=== PATIENT | female | born 1955 | race African-American/Black ===

== ENCOUNTER 2016-12-07 05:34 | Emergency (ER) | payer OTHER ==
[2016-12-07] MEDS ORDERED: IBUPROFEN 600 MG TABLET (FP) PO STA (05:56)
--- NOTE | 2016-12-07 05:56 | PDOC ---
History of Present Illness - General History Source: Patient Exam Limitations: No Limitations - History of Present Illness Initial Comments: 12/07/16 06:15 The patient is a 61 year old female, with a significant past medical history of hypertension and GERD, who presents to the emergency department complaining of non-radiating left ankle pain for 2 days. The patient reports the front of her left ankle is swollen and nonerythematous. The patient reports she has no recollection of injury to her ankle in the past couple of days. She reports the pain is exacerbated when walking, but denies any alleviating factors. She denies any associated paresthesias or numbness. The patient denies taking tylenol or advil. The patient denies fever, chills, cough, headache, dizziness, or back pain. The patient denies chest pain, diaphoresis, palpitations, or shortness of breath. The patient denies nausea, vomiting, diarrhea, constipation , or changes in urination patterns. Allergies: NKDA. Tomatoes Past Surgical History: None reported Social History: Non-smoker. Denies alcohol or drug use. PCP: Dr. Tiesha Mahajan <Cee Sheldon - Last Filed: 12/07/16 06:58> - General History Source: Patient <JacobFuentes bui - Last Filed: 12/07/16 07:03> - General Stated Complaint: PAIN/SWELLING LT FOOT Time Seen by Provider: 12/07/16 05:51 Past History <Cee Sheldon - Last Filed: 12/07/16 06:58> - Past Medical History GI Disorders: Yes (gerd) HTN: Yes Hypercholesterolemia: Yes - Surgical History Appendectomy: Yes - Psycho/Social/Smoking Cessation Hx Anxiety: No Suicidal Ideation: No Smoking History: Never smoked Hx Alcohol Use: No Substance Use Type: None <Fuentes Pennington - Last Filed: 12/07/16 07:03> - Past Medical History Allergies/Adverse Reactions: Allergies Allergy/AdvReac Type Severity Reaction Status Date / Time No Known Drug Allergies Allergy Verified 12/07/16 06:15 tomato Allergy Verified 12/07/16 06:15 Home Medications: Ambulatory Orders Omeprazole [Prilosec (RX)] 40 mg PO BID 05/07/15 Aspirin [ASA -] 81 mg PO DAILY 10/29/16 Atorvastatin Ca [Lipitor] 20 mg PO HS 10/29/16 Baclofen 10 mg PO BID 10/29/16 Lisinopril/Hydrochlorothiazide [Lisinopril-Hctz 20-25 mg Tab] 1 each PO DAILY [place]-3 Fatty Acids/Fish Oil [Fish Oil 1,000 mg Softgel] 1 each PO DAILY Cholecalciferol (Vitamin D3) [D-2000] 1,000 unit PO DAILY 12/07/16 Ibuprofen 800 mg PO TID #30 tablet 12/07/16 Magnesium Oxide [Magnesium] 250 mg PO DAILY 12/07/16 Oxycodone HCl/Acetaminophen [Percocet 5-325 mg Tablet] 1 - 2 tab PO Q6H #20 tablet MDD 4 12/07/16 Review of Systems - Review of Systems Able to Perform ROS?: Yes Comments:: 12/07/16 06:15 CONSTITUTIONAL: Absent: fever, no chills, no fatigue EYES: Absent: visual changes ENT: Absent: ear pain, no sore throat CARDIOVASCULAR: Absent: chest pain, no palpitations RESPIRATORY: Absent: cough, no SOB GI: Absent: abdominal pain, no nausea, no vomiting, no constipation, no diarrhea GENITOURINARY: Absent: dysuria, no frequency, no hematuria MUSKULOSKELETAL: Present: +left ankle pain, +left ankle swelling Absent: back pain, no arthralgia, no myalgia SKIN: Absent: rash NEURO: Absent: headache <Sheldon,Giomilsy - Last Filed: 12/07/16 06:58> *Physical Exam - Physical Exam Comments: 12/07/16 06:16 GENERAL: Well-appearing, well-nourished. No apparent distress. HEENT: Normocephalic, atraumatic. PERRL, EOM intact. CARDIOVASCULAR: Normal S1, S2. Regular rate and rhythm. PULMONARY: Clear to auscultation bilaterally. ABDOMEN: Soft, non-distended, non-tender. EXTREMITIES: Normal range of motion at all joints. No bony deformities or tenderness. No CVA tenderness. Left anterior ankle swelling, non-erythematous and non-ecchymotic. SKIN: Warm, dry. No rash. No skin lesions noted. NEUROLOGICAL: Alert, awake, appropriate. Cranial nerves 2-12 intact. No deficits to light touch and temperature in face, upper extremities and lower extremities. No motor deficits in the in face, upper extremities and lower extremities. Normoreflexic in the upper and lower extremities. Normal speech. Toes are down- going bilaterally. Gait is normal without ataxia. <Cee Sheldon - Last Filed: 12/07/16 06:58> ED Treatment Course - RADIOLOGY Radiograph Interpretation: 12/07/16 06:55 EXAM: Left foot/ankle X-RAY INTERPRETED BY: Dr. Tolentino REVIEWED BY: Dr. Pennington IMPRESSION: Degenerative changes. No acute findings. <Cee Sheldon - Last Filed: 12/07/16 06:58> Medical Decision Making - Medical Decision Making 12/07/16 07:03 Dr. Pennington: The scribe's documentation has been prepared under my direction and personally reviewed by me in its entirery. I confirm that the note above accurately reflects all work, treatment, procedures, and medical decision making performed by me. <Fuentes Pennington - Last Filed: 12/07/16 07:03> *DC/Admit/Observation/Transfer - Attestations Scribe Attestion: 12/07/16 06:16 Documentation prepared by Cee Sheldon, acting as medical insurance claims specialist for Fuentes Pennington DO. <Cee Sheldon - Last Filed: 12/07/16 06:58> - Discharge Dispostion Admit: No <Fuentes Pennington - Last Filed: 12/07/16 07:03> Diagnosis at time of Disposition: Left ankle sprain Qualifiers: Encounter type: initial encounter Involved ligament of ankle: unspecified ligament Qualified Code(s): S93.402A - Sprain of unspecified ligament of left ankle, initial encounter - Prescriptions Prescriptions: Ibuprofen 800 mg PO TID #30 tablet Oxycodone HCl/Acetaminophen [Percocet 5-325 mg Tablet] 1 - 2 tab PO Q6H #20 tablet MDD 4 - Referrals Referrals: Tiesha Mahajan MD [Primary Care Provider] - - Patient Instructions Printed Discharge Instructions: DI for Ankle Sprain
[2016-12-07 06:18] VITALS: TEMP 98.7; BMI 38.2
[2016-12-07] MEDS ORDERED: IBUPROFEN 400 MG TABLET (FP) PO ONE (06:21)
[2016-12-07] MEDS ORDERED: OXYCODONE/APAP 5/325MG COMBO TABLET PO ONE (07:02)
[2016-12-07 08:19] VITALS: BP 136/70; PULSE 80
== END 2016-12-07 08:36 | disposition home or self-care (01) ==
LOC: JER 05:34
DX: S93.402A Sprain of unspecified ligament of left ankle, initial encounter (principal); X58.XXXA Exposure to other specified factors, initial encounter; Y93.9 Activity, unspecified; Y92.9 Unspecified place or not applicable; I10 Essential (primary) hypertension; E78.00 Pure hypercholesterolemia, unspecified; K21.9 Gastro-esophageal reflux disease without esophagitis; Z79.82 Long term (current) use of aspirin
CPT/HCPCS: 73610-TC-LT; 73630-TC-LT; 99282-25

== ENCOUNTER 2016-12-16 12:21 | Emergency (ER) | payer OTHER ==
[2016-12-16 12:28] VITALS: BP 129/78; PULSE 95; TEMP 98; BMI 37.1
--- NOTE | 2016-12-16 13:56 | PDOC ---
History of Present Illness - General Chief Complaint: Pain Stated Complaint: ANKLE BRUISING Time Seen by Provider: 12/16/16 13:02 History Source: Patient Exam Limitations: No Limitations - History of Present Illness Initial Comments: 12/16/16 14:12 Patient came to ER for reevaluation of left ankle sprain. tripped over some cording 2 weeks ago, was seen and evaluated here and diagnosed with a left ankle sprain without fractures. Levon wrap was provided and crutches. Patient states was using ibuprofen with good resolved but states 2 days ago put on a pair of high-heeled boots and was standing for most of the day and re- exacerbated the pain to her left foot. Swollen and tender with inability to weight-bear Occurred: reports: last week Severity: reports: moderate Pain Location: reports: lower extremity Past History - Travel Traveled outside of the country in the last 30 days: No Close contact w/someone who was outside of country & ill: No - Past Medical History Allergies/Adverse Reactions: Allergies Allergy/AdvReac Type Severity Reaction Status Date / Time No Known Drug Allergies Allergy Verified 12/16/16 12:28 tomato Allergy Verified 12/16/16 12:28 Home Medications: Ambulatory Orders Omeprazole [Prilosec (RX)] 40 mg PO BID 05/07/15 Aspirin [ASA -] 81 mg PO DAILY 10/29/16 Atorvastatin Ca [Lipitor] 20 mg PO HS 10/29/16 Baclofen 10 mg PO BID 10/29/16 Lisinopril/Hydrochlorothiazide [Lisinopril-Hctz 20-25 mg Tab] 1 each PO DAILY [place]-3 Fatty Acids/Fish Oil [Fish Oil 1,000 mg Softgel] 1 each PO DAILY Cholecalciferol (Vitamin D3) [D-2000] 1,000 unit PO DAILY 12/07/16 Ibuprofen 800 mg PO TID #30 tablet 12/07/16 Magnesium Oxide [Magnesium] 250 mg PO DAILY 12/07/16 Oxycodone HCl/Acetaminophen [Percocet 5-325 mg Tablet] 1 - 2 tab PO Q6H #20 tablet MDD 4 12/07/16 GI Disorders: Yes (gerd) HTN: Yes Hypercholesterolemia: Yes - Surgical History Appendectomy: Yes - Immunization History Immunization Up to Date: Yes - Psycho/Social/Smoking Cessation Hx Anxiety: No Suicidal Ideation: No Smoking History: Never smoked Information on smoking cessation initiated: No Hx Alcohol Use: No Substance Use Type: None Trauma Specific PMHX - Complaint Specific PMHX Back Injury: No Neck Injury: No Review of Systems - Review of Systems Able to Perform ROS?: Yes Is the patient limited Bangladeshi proficient: Yes Constitutional: Yes: See HPI. No: Symptoms Reported HEENTM: No: Symptoms Reported Musculoskeletal: Yes: Symptoms Reported, See HPI, Joint Pain, Joint Swelling All Other Systems: Reviewed and Negative *Physical Exam - Vital Signs Last Vital Signs Temp Pulse Resp BP Pulse Ox 98 F 95 H 18 129/78 98 12/16/16 12:25 12/16/16 12:25 12/16/16 12:25 12/16/16 12:25 12/16/16 12:25 - Physical Exam General Appearance: Yes: Nourished, Appropriately Dressed, Apparent Distress, Mild Distress HEENT: positive: EDUARDO, Normal ENT Inspection Neck: negative: Tender Respiratory/Chest: positive: Lungs Clear Musculoskeletal: positive: Normal Inspection Extremity: positive: Normal Capillary Refill. negative: Normal Inspection ( swelling, tenderness, pain to lateral malleolus and extending into mid foot and ligamentous areas. Range of motion is intact although plantar flexion re- exacerbates pain. Has no fifth metatarsal or navicular tenderness, negative squeeze test. 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 Levon wrap and Aircast applied, readjusted crutches and patient encouraged to follow- up with orthopedist this week for further evaluation and testing as needed *DC/Admit/Observation/Transfer Diagnosis at time of Disposition: Ankle sprain Qualifiers: Encounter type: subsequent encounter Involved ligament of ankle: unspecified ligament Laterality: left Qualified Code(s): S93.402D - Sprain of unspecified ligament of left ankle, subsequent encounter - Discharge Dispostion Disposition: HOME Condition at time of disposition: Stable Admit: No - Referrals Referrals: Tiesha Mahajan MD [Primary Care Provider] - Frankie Anaya MD [Staff Physician] - - Patient Instructions Printed Discharge Instructions: DI for Ankle Sprain Additional Instructions: Rest, ice to area on and off for 15 minutes 4-6 times a day Avoid heavy lifting or exercise until pain and swelling is resolved or until further directed Keep area highly elevated to reduce swelling Use splints/Levon wrap as directed Followup with orthopedist in one to 2 days if not improving, if significantly improved may wait one week for followup with orthopedist May use ibuprofen 2-200 mg tablets every 6 hours as needed for pain
== END 2016-12-16 13:43 | disposition home or self-care (01) ==
LOC: JERFT 12:21
PROC: 2W3MX1Z Immobilization of Left Lower Extremity using Splint (ICD-10-PCS; principal; 2016-12-16)
DX: S93.402D Sprain of unspecified ligament of left ankle, subsequent encounter (principal); X50.1XXA Overexertion from prolonged static or awkward postures, initial encounter; X50.9XXA Other and unspecified overexertion or strenuous movements or postures, initial encounter; Y93.89 Activity, other specified; Y92.9 Unspecified place or not applicable; Y99.9 Unspecified external cause status
CPT/HCPCS: 29515; 99281-25

== ENCOUNTER 2017-06-29 13:07 | Emergency (ER) | payer OTHER ==
[2017-06-29 13:17] VITALS: BP 135/79; PULSE 98; TEMP 98; BMI 37.3
[2017-06-29] MEDS ORDERED: TRIAMCINOLONE ACET 40MG/1ML VIAL IM ONE (14:06)
--- NOTE | 2017-06-29 14:19 | PDOC ---
History of Present Illness - General Chief Complaint: Rash Stated Complaint: RASH Time Seen by Provider: 06/29/17 13:32 History Source: Patient Exam Limitations: No Limitations - History of Present Illness Initial Comments: 06/29/17 14:29 She came to emergency department for evaluation of worsening maculopapular rash which started on left arm and has spread extending through all of arm, bilateral thighs, and now to her upper back. Denies fever, recent URI, or other illness. Denies other family members with rash, denies any travel or exposure to any plants or poison percy type substance. Denies any changes in soaps creams or other environmental applications. No pets at home, and no known infestations. Uncertain as to cause. Denies swelling to lips tongue or breathing problems, no exposure to infectious disease, and no areas infected. Timing/Duration: reports: just prior to arrival, changing over time, getting worse Location: reports: extremities, torso Respiratory Risk Factors: reports: no cause identified Associated Symptoms: reports: denies symptoms Past History - Travel Traveled outside of the country in the last 30 days: No Close contact w/someone who was outside of country & ill: No - Past Medical History Allergies/Adverse Reactions: Allergies Allergy/AdvReac Type Severity Reaction Status Date / Time No Known Drug Allergies Allergy Verified 06/29/17 13:11 tomato Allergy Verified 06/29/17 13:11 Home Medications: Ambulatory Orders Omeprazole [Prilosec (RX)] 40 mg PO BID 05/07/15 Aspirin [ASA -] 81 mg PO DAILY 10/29/16 Atorvastatin Ca [Lipitor] 20 mg PO HS 10/29/16 Baclofen 10 mg PO BID 10/29/16 Lisinopril/Hydrochlorothiazide [Lisinopril-Hctz 20-25 mg Tab] 1 each PO DAILY [place]-3 Fatty Acids/Fish Oil [Fish Oil 1,000 mg Softgel] 1 each PO DAILY Cholecalciferol (Vitamin D3) [D-2000] 1,000 unit PO DAILY 12/07/16 Ibuprofen 800 mg PO TID #30 tablet 12/07/16 Magnesium Oxide [Magnesium] 250 mg PO DAILY 12/07/16 Cetirizine HCl [Zyrtec -] 10 mg PO DAILY #30 tablet 06/29/17 Diabetes: Yes GI Disorders: Yes (gerd) HTN: Yes Hypercholesterolemia: Yes Other medical history: GOUT - Surgical History Appendectomy: Yes - Immunization History Immunization Up to Date: Yes - Psycho/Social/Smoking Cessation Hx Anxiety: No Suicidal Ideation: No Smoking History: Never smoked Information on smoking cessation initiated: No Hx Alcohol Use: No Substance Use Type: None Review of Systems - Review of Systems Able to Perform ROS?: Yes Is the patient limited [place] proficient: Yes Constitutional: Yes: See HPI. No: Symptoms Reported, Fever, Malaise HEENTM: Yes: See HPI. No: Symptoms Reported, Nose Pain, Nose Congestion, Throat Pain, Throat Swelling, Mouth Swelling Respiratory: Yes: See HPI. No: Symptoms reported, Cough, Shortness of Breath, Wheezing Integumentary: Yes: Symptoms Reported, See HPI, Lesions, Pruritus, Rash Neurological: Yes: See HPI. No: Symptoms reported Hematologic/Lymphatic: No: Symptoms Reported All Other Systems: Reviewed and Negative *Physical Exam - Vital Signs Last Vital Signs Temp Pulse Resp BP Pulse Ox 98 F 98 H 18 135/79 99 06/29/17 13:08 06/29/17 13:08 06/29/17 13:08 06/29/17 13:08 06/29/17 13:08 - Physical Exam General Appearance: Yes: Nourished, Appropriately Dressed, Apparent Distress, Mild Distress HEENT: positive: EDUARDO, Normal ENT Inspection, TMs Normal, Pharynx Normal Neck: positive: Supple. negative: Tender, Lymphadenopathy (R), Lymphadenopathy (L) Respiratory/Chest: positive: Lungs Clear, Normal Breath Sounds Cardiovascular: positive: Regular Rate Extremity: positive: Normal Capillary Refill, Normal Inspection, Normal Range of Motion Integumentary: positive: Normal Color, Dry, Warm, Rash (she'll papular rash, discrete lesions covering left arm extending from wrist up to mid humerus circumferentially, not pointing, not umbilicated, no erythematous base or vesicular in nature. Has same type lesions noted on upper legs bilaterally, and some new cropping lesions on her mid back. 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 Evidence of anaphylaxis, infectious, or infected We 'll treat with 1 dose of Kenalog, and antihistamines. Encouraged follow-up with PMD or supervisor nurse if persistent *DC/Admit/Observation/Transfer Diagnosis at time of Disposition: Rash and nonspecific skin eruption - Discharge Dispostion Disposition: HOME Condition at time of disposition: Stable Admit: No - Patient Instructions Printed Discharge Instructions: DI for Rash Additional Instructions: Rest, keep cool and dry- avoid strenuous activity or hot /humid environments Less hot showers, no abrasive soaps May use heavy creams like Eucerin or Cetaphil to keep skin moist May apply Aveeno, calamine lotion, [id number] hydrocortisone creams as needed for symptoms May use Benadryl at night for antihistamine, Zyrtec/ Kaity or Claritin for daytime antihistamine use to help with itching Received one dose of Kenalog, a long-acting steroid for itching and inflammation May use lfgn-yjh-wryjzuk hydrocortisone cream on all areas except face Try to identify cause for rash and avoid exposures Followup with PMD in one week if no resolution Make appointment with supervisor nurse for evaluation when possible - Post Discharge Activity Work/School Note: Back to Work
[2017-06-29] MEDS ORDERED: TRIAMCINOLONE ACET 40MG/1ML VIAL ONE (14:21)
== END 2017-06-29 14:47 | disposition home or self-care (01) ==
LOC: JERFT 13:07
PROC: 3E0233Z Introduction of Anti-inflammatory into Muscle, Percutaneous Approach (ICD-10-PCS; principal; 2017-06-29)
DX: R21 Rash and other nonspecific skin eruption (principal); I10 Essential (primary) hypertension; E11.9 Type 2 diabetes mellitus without complications; M10.9 Gout, unspecified; E78.00 Pure hypercholesterolemia, unspecified; K21.9 Gastro-esophageal reflux disease without esophagitis
CPT/HCPCS: 96372; 99281-25

== ENCOUNTER 2017-08-08 12:23 | Emergency (ER) | payer OTHER ==
[2017-08-08 12:38] VITALS: BP 102/69; PULSE 75; TEMP 98.4; BMI 36.4
--- NOTE | 2017-08-08 14:58 | PDOC ---
History of Present Illness - General Chief Complaint: Pain Stated Complaint: LT KNEE PAIN Time Seen by Provider: 08/08/17 14:24 History Source: Patient Exam Limitations: No Limitations - History of Present Illness Initial Comments: 08/08/17 14:58 My chief complaint: Left Knee pain History of present illness: Patient is a 62-year-old female with history of hyperlipidemia, GERD, hypertension, gout, and cya-tvsptkk-rlqrsupoe diabetes here today complaining of left knee pain. Patient denies any injury to her knee. Patient denies that she is limping. Patient reports that she has been taking Aleve with some relief of pain. Patient denies any numbness of her left leg. Occurred: reports: other (for a few weeks) Severity: Yes: moderate Lower Extremity Pain Location: left: knee Method of Injury: Yes: unknown Modifying Factors: improves with: None Lower Ext. Injury Location - Specific Injury Location Knees: left pain Extremity Pain Location - Extremity Pain Location Extremity Pain Locations: left: knee Past History - Past Medical History Allergies/Adverse Reactions: Allergies Allergy/AdvReac Type Severity Reaction Status Date / Time No Known Drug Allergies Allergy Verified 08/08/17 12:35 tomato Allergy Verified 08/08/17 12:35 Home Medications: Ambulatory Orders Omeprazole [Prilosec (RX)] 40 mg PO BID 05/07/15 Aspirin [ASA -] 81 mg PO DAILY 10/29/16 Atorvastatin Ca [Lipitor] 20 mg PO HS 10/29/16 Baclofen 10 mg PO BID 10/29/16 Lisinopril/Hydrochlorothiazide [Lisinopril-Hctz 20-25 mg Tab] 1 each PO DAILY [place]-3 Fatty Acids/Fish Oil [Fish Oil 1,000 mg Softgel] 1 each PO DAILY Cholecalciferol (Vitamin D3) [D-2000] 1,000 unit PO DAILY 12/07/16 Ibuprofen 800 mg PO TID #30 tablet 12/07/16 Magnesium Oxide [Magnesium] 250 mg PO DAILY 12/07/16 Cetirizine HCl [Zyrtec -] 10 mg PO DAILY #30 tablet 06/29/17 Diabetes: Yes GI Disorders: Yes (gerd) HTN: Yes Hypercholesterolemia: Yes Other medical history: gout - Surgical History Appendectomy: Yes - Immunization History Immunization Up to Date: Yes - Suicide/Smoking/Psychosocial Hx Smoking History: Never smoked Hx Alcohol Use: No Drug/Substance Use Hx: No Substance Use Type: None Review of Systems - Review of Systems Able to Perform ROS?: Yes Constitutional: No: Symptoms Reported HEENTM: No: Symptoms Reported Respiratory: No: Symptoms reported Cardiac (ROS): No: Symptoms Reported ABD/GI: No: Symptoms Reported : No: Symptoms Reported Musculoskeletal: Yes: Joint Pain (left knee). No: Joint Swelling Integumentary: No: Symptoms Reported Neurological: No: Symptoms reported *Physical Exam - Vital Signs Last Vital Signs Temp Pulse Resp BP Pulse Ox 98.4 F 75 18 102/69 100 08/08/17 12:36 08/08/17 12:36 08/08/17 12:36 08/08/17 12:36 08/08/17 12:36 - Physical Exam General Appearance: Yes: Appropriately Dressed Vascular Pulses: Doralis-Pedis (L): 4+ Extremity: positive: Normal Capillary Refill, Normal Inspection, Normal Range of Motion, Tender. negative: Other (no crepitus, negative anterior/posterior drawer, negative Christian) Integumentary: positive: Normal Color Neurologic: positive: Alert, Normal Response, Responsive. negative: Respond to painful stimul ED Treatment Course - RADIOLOGY Radiology Studies Ordered: Category Date Time Status KNEE 3 POS-LEFT [RAD] Stat Radiology 08/08/17 14:52 Ordered Medical Decision Making - Medical Decision Making 08/08/17 15:01 Patient is a 62-year-old female with history of hyperlipidemia, GERD, hypertension, gout, and pgc-jtwpddw-seziwnpko diabetes here today complaining of left knee pain. Patient denies any injury to her knee. Patient denies that she is limping. Patient reports that she has been taking Aleve with some relief of pain. Patient denies any numbness of her left leg. Left knee pain Plan: X-ray left knee mild OA changes per Dr. Cancino Follow-up with orthopedist as soon as possible 08/08/17 16:27 *DC/Admit/Observation/Transfer Diagnosis at time of Disposition: Knee pain, left Qualifiers: Chronicity: acute Qualified Code(s): M25.562 - Pain in left knee Diagnosis at time of Disposition: (Ruled Out): Right knee pain - Discharge Dispostion Disposition: HOME Condition at time of disposition: Stable - Referrals Referrals: Tiesha Mahajan MD [Primary Care Provider] - Jeff Tony MD [Staff Physician] - - Patient Instructions Additional Instructions: Follow-up with orthopedist for further evaluation of your knee pain You may take Aleve as directed by applied psychology professor for pain Avoid any strenuous activities or exercise Patient voiced understanding of discharge instructions and all questions were answered
== END 2017-08-08 16:40 | disposition home or self-care (01) ==
LOC: JERFT 12:23
DX: M25.562 Pain in left knee (principal); K21.9 Gastro-esophageal reflux disease without esophagitis; I10 Essential (primary) hypertension; E11.9 Type 2 diabetes mellitus without complications; E78.5 Hyperlipidemia, unspecified
CPT/HCPCS: 73562-TC-LT; 99281-25

== ENCOUNTER 2018-07-11 09:09 | Day surgery (SDC) | payer OTHER ==
[2018-07-10 10:32] VITALS: BMI 36.6
--- NOTE | 2018-07-11 08:52 | HP ---
History & Physical Update - History History: No Change - Physical Physical: No Change - Assessment Assessment: No Change - Plan Plan: No Change (Exploration of sinus in left buttock, possible drainage / excision explained. Possibility of keeping the wound open discussed. MRI findings discusssed.)
[2018-07-11] MEDS ORDERED: MIDAZOLAM HCL 2 MG/2 ML SINGLE DOSE VIAL ONE (09:48)
[2018-07-11] MEDS ORDERED: LACTATED RINGERS SOLUTION 1,000 ML IV SCH (10:15)
[2018-07-11] MEDS ORDERED: PROPOFOL 20 ML ONE ×2 (10:17→10:45)
[2018-07-11] MEDS ORDERED: LIDOCAINE HCL 1% PRESERVATIVE FREE - 30ML VIAL IJ ONE (10:40)
[2018-07-11] MEDS ORDERED: DEXAMETHASONE SOD PHOSPHATE 4 MG/1 ML VIAL ONE (10:44)
[2018-07-11] MEDS ORDERED: SODIUM CHLORIDE 0.9% P/F 10 ML VIAL IJ ONE (10:44)
[2018-07-11] MEDS ORDERED: ceFAZolin SODIUM 1 GM VIAL ONE (10:44)
[2018-07-11] MEDS ORDERED: ONDANSETRON 4 MG/2 ML VIAL ONE (10:44)
[2018-07-11] MEDS ORDERED: LIDOCAINE HCL/PF 2% SDV 5ML VIAL ONE (10:44)
--- NOTE | 2018-07-11 11:04 | OP ---
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 Operation: Examination under anesthesia, anoscopy with dilation, anal fistulectomy, trnssphincteric, with placement of seton Findings: Anal fistula , entering the anal canal at 5 O'clock position, transsphincteric. Seton placed , no. 2 ethibond. Post-Operative Diagnosis: Other (Transsphincteric anal fistula.) Surgeon: Santiago Dutta Anesthesiologist/FOOD SERVICES DIRECTOR: Juan Simon Anesthesia: General Specimens Removed: Anal fistula. Estimated Blood Loss (mls): 25 Operative Report Dictated: Yes
[2018-07-11 12:46] VITALS: BP 104/64; PULSE 83; TEMP 97.6
--- NOTE | 2018-07-11 13:11 | OP ---
DATE OF OPERATION: 07/11/2018 PREOPERATIVE DIAGNOSIS: Chronically draining sinus in the left buttock. 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 OPERATION: Examination under anesthesia, anoscopy with dilation, anal fistulotomy/ fistulectomy transsphincteric with placement of seton. SURGEON: Lety Martinez M.D. ANESTHESIOLOGIST: Juan Moe M.D. OPERATIVE DESCRIPTION: This 63-year-old woman had a chronically draining sinus in the left gluteal region with local induration. Rectal examination is normal. Patient had MRI of the perineum which did not reveal any abscess or any fistula. Patient was brought in for examination under anesthesia and possible anal fistulotomy and anoscopy. Patient was made aware of this being possibly an anal fistula. Patient was given general anesthesia, placed in lithotomy. The perineum was painted and draped. An anal scope was introduced into the anal canal. There was no gross pathology in the anal canal. In the rectum, after dilating the anal canal, it was started as a small induration at about the 5 o'clock position at 4-5 cm to the anal verge. The probe was introduced to distract, and it opened in the 5 o'clock position in the anal canal and anorectal junction suggesting this to be a high anal fistula. The fistula was then excised with an incision around the opening and cutting this towards the anal canal. This appeared deep to go through the subcutaneous fat and then through the external sphincter. Dissection stopped at the level of the external sphincter wherein a number 2 Ethibond suture was passed through the internal opening and brought out externally through the sphincter. A fistula probe was utilized to facilitate passage of the seton. The seton was then tied around the external sphincter and left long for about 3 cm in length beyond the knot. Hemostasis was then achieved. The wound about 5 cm in length and 2 cm width was left open and packed with Iodoform gauze. Dressing was applied. Estimated blood loss was 15 to 20 mL. Sponge count and instrument count was correct. Patient tolerated the procedure well and was sent to the recovery room in satisfactory and stable condition. CLARI JONES M.D. [id number] MTDD
--- NOTE | 2018-07-16 12:10 | PATH ---
Surgical Pathology Report Patient Name: MIGUEL HAWKINS [facility]. Rec. #: [id number] /Age/Gender: 1955 (Age: 63) / F Account: [id number] Location: [facility] SURGICAL Taken: 07/11/2018 Received: 07/11/2018 Reported: 07/16/2018 Physicians: Korin Dutta M.D. Specimen(s) Received LEFT ANAL FISTULA Clinical History Chronic sinus left buttock Final Diagnosis GLUTEAL, LEFT, ANAL FISTULA, EXCISION: SQUAMOUS MUCOSA, UNDERLYING ADIPOSE TISSUE AND SKELETAL MUSCLE WITH MILD SUPERFICIAL DERMAL CHRONIC INFLAMMATORY INFILTRATE, FOCAL DERMAL FIBROSIS, AND FOCAL MUCOSAL EROSION. Comment: Deeper levels have been examined. Electronically Signed Kamila Ramirez M.D. Gross Description Received in formalin labeled "anal fistula left gluteal," is a 2.2 x 2.0 cm brown, ovoid portion of skin excised to a depth of 1.7 cm. Sectioning reveals fibroadipose tissue with a possible sinus tract. Optical Instrument Inspector sections are submitted in one cassette. The remainder of the specimen is entirely submitted in cassettes #2-3. DL/07/11/2018 saudi/07/11/2018
== END 2018-07-11 14:45 | disposition home or self-care (01) ==
LOC: JASU-SURG 09:09
PROVIDERS: ATTEND Specialist
PROC: 0D8R0ZZ Division of Anal Sphincter, Open Approach (ICD-10-PCS; principal; 2018-07-11 11:00)
DX: K60.3 Anal fistula (principal)
CPT/HCPCS: 88304-TC; 94760

== ENCOUNTER 2018-08-22 08:34 | Day surgery (SDC) | payer OTHER ==
[2018-08-21 09:34] VITALS: BMI 37.3
--- NOTE | 2018-08-22 09:16 | HP ---
History & Physical Update - History History: No Change - Physical Physical: No Change - Assessment Assessment: No Change - Plan Plan: No Change (Patient with intersphincteric anal fistula , s/p placement of seton, for examination under anesthesia, possible change of seton / fistulectomy.)
[2018-08-22] MEDS ORDERED: MIDAZOLAM HCL 2 MG/2 ML SINGLE DOSE VIAL ONE (09:42)
[2018-08-22] MEDS ORDERED: PROPOFOL 20 ML ONE (10:29)
[2018-08-22] MEDS ORDERED: ceFAZolin SODIUM 1 GM VIAL IVPB ONE (11:05)
--- NOTE | 2018-08-22 11:30 | OP ---
Operative Note - Note: Operative Date: 08/22/18 Pre-Operative Diagnosis: Transsphincteric anal fistula, s/p placement of seton. Operation: Second stage anal fistulotomy , examination under anesthesia, anoscopy, change of seton, cauterisation of fistulous tract. Findings: Transsphincteric anal fistula. The tract is still through the lower fibers of the external sphincter> Seton changed. No. 5 mercelene passed through the fistula and tied around the sphincter. The fistula tract was cauterised with electrocautery. Post-Operative Diagnosis: Same as Pre-op Surgeon: Santiago Dutta Anesthesiologist/FLAGMAN: Inna Celaya Anesthesia: General Specimens Removed: None. Estimated Blood Loss (mls): 5 Operative Report Dictated: Yes
[2018-08-22] MEDS ORDERED: oxyCODONE HCL 5 MG TABLET PO PRN (12:02)
[2018-08-22] MEDS ORDERED: LACTATED RINGERS SOLUTION 1,000 ML IV SCH (12:15)
[2018-08-22 12:17] VITALS: TEMP 97.6
[2018-08-22] MEDS ORDERED: ONDANSETRON 4 MG/2 ML VIAL ONE (13:46)
[2018-08-22 16:11] VITALS: BP 115/58; PULSE 77
--- NOTE | 2018-08-23 06:18 | OP ---
DATE OF OPERATION: 08/22/2018 PREOPERATIVE DIAGNOSIS: Transsphincteric anal fistula status post placement of seton and 1st stage fistulectomy. POSTOPERATIVE DIAGNOSIS: Transsphincteric anal fistula status post placement of seton and 1st stage fistulectomy. OPERATIVE PROCEDURE: Examination under anesthesia, anoscopy and change of seton , and cauterization of the fistulous tract. SURGEON: Korin Dutta MD ANESTHESIA: General anesthesia. OPERATIVE DESCRIPTION: This is a 63-year-old woman with history of transsphincteric anal fistula who underwent excision, of the distal portion of the tract, and seton was placed, about 6 weeks ago. Patient was brought in for examination under anesthesia, possible replacement of the seton or completion of the fistulectomy. Consent was obtained. Risks, benefits, and complications were discussed with the patient. Patient was given general anesthesia, placed in the lithotomy position. Antibiotics were given. Time-out was called. The perineum and anal canal were painted with Betadine and draped. The seton was identified and pulled back. It appeared to pass through the superficial fibers of the external sphincter. A probe was then placed through the fistulous tract, and a No. 5 Mersilene was brought out through the anal fistula. The previously placed seton was removed. The seton was then tied around the external sphincter circumferentially thus producing pressure, and hopefully , enough cicatrization for a completion, in the next procedure. The fistulous tract was then cauterized with electrocautery, as well as the granulation tissue of the external portion, that had been granulated. Hemostasis was satisfactory. Patient tolerated the procedure well and was sent to the recovery room in satisfactory and stable condition. Scott [id number] MTDD
== END 2018-08-22 15:00 | disposition home or self-care (01) ==
LOC: JASU-SURG 08:34
PROVIDERS: ATTEND Specialist
PROC: 0DQQ8ZZ Repair Anus, Via Natural or Artificial Opening Endoscopic (ICD-10-PCS; 2018-08-22)
PROC: 0DBQ4ZZ Excision of Anus, Percutaneous Endoscopic Approach (ICD-10-PCS; principal; 2018-08-22 10:00)
DX: K60.3 Anal fistula (principal)
CPT/HCPCS: 94760

== ENCOUNTER 2023-08-15 00:11 | Observation (INO) | payer OTHER ==
[2023-08-15] MEDS ORDERED: ACETAMINOPHEN 500 MG TABLET (FP) PO ONE (01:30)
[2023-08-15] MEDS ORDERED: LIDOCAINE 5% TOPICAL PATCH TP ONE (01:31)
[2023-08-15] MEDS ORDERED: METHOCARBAMOL 750 MG TABLET PO ONE (01:31)
[2023-08-15] MEDS ORDERED: ACETAMINOPHEN 1000 MG/100 ML BAG IVPB ONE (01:50)
[2023-08-15] MEDS ORDERED: ACETAMINOPHEN INJECTION 100 ML IVPB ONE (01:51)
[2023-08-15] MEDS ORDERED: LIDOCAINE 4% PATCH TP ONE (01:51)
[2023-08-15] MEDS ORDERED: METHOCARBAMOL 500 MG TABLET ONE (01:51)
[2023-08-15 02:34] LABS: BASO % 0.9 % (0-2.0); EOS % 4.1 % (0-4.5); HEMATOCRIT 35.6 % (32.4-45.2); LYMPH % 17.5 % (8-40); MCH 25.6 pg (25.7-33.7); MCHC 33.8 g/dl (32.0-36.0); MEAN CELL VOLUME 75.8 fl (80-96); MEAN PLT VOLUME 6.9 fl (7.5-11.1); MONO % 7.9 % (3.8-10.2); NEUT % 69.6 % (42.8-82.8); PLATELET COUNT 372 10^3/uL (134-434); RBC 4.69 M/mm3 (3.60-5.2); RDW 15.5 % (11.6-15.6); WHITE BLOOD COUNT 9.6 K/mm3 (4.0-10.0)
[2023-08-15 03:08] LABS: POTASSIUM 3.9 mmol/L (3.5-5.1)
[2023-08-15 03:09] LABS: CALCIUM 9.9 mg/dL (8.5-10.1)
[2023-08-15 03:10] LABS: ALBUMIN 4.2 g/dl (3.4-5.0); BLOOD UREA NITROGEN 36.4 mg/dL (7-18)
[2023-08-15 03:13] LABS: CREATININE 1.4 mg/dL (0.55-1.3)
[2023-08-15 03:15] LABS: BILIRUBIN,TOTAL 0.2 mg/dL (0.2-1); TOT PROT 7.6 g/dl (6.4-8.2)
[2023-08-15 03:25] LABS: EPI CELLS 5 /uL (0-25.1); HYALINE CASTS 0 /uL (0-3.1); PH,URINE 5.5 (5.0-8.0); URINE APPEARANCE CLEAR; URINE BACTERIA 21 /uL (0-1359); URINE BILIRUBIN NEGATIVE (NEGATIVE); URINE COLOR YELLOW; URINE GLUCOSE (UA) NEGATIVE (NEGATIVE); URINE KETONE NEGATIVE (NEGATIVE); URINE LEUK ESTERASE 1+ (NEGATIVE); URINE NITRITE NEGATIVE (NEGATIVE); URINE PROTEIN NEGATIVE (NEGATIVE); URINE RBC 10 /uL (0-23.9); URINE UROBILINOGEN 0.2 mg/dL (0.2-1.0); URINE WBC 8 /uL (0-25.8)
[2023-08-15] MEDS ORDERED: morphine CARPU-JECT 4 MG/1 ML DISP.SYRIN IVPUSH ONE (06:56)
[2023-08-15] MEDS ORDERED: morphine SULFATE 4 MG/ML VIAL ONE (07:26)
[2023-08-15] MEDS ORDERED: BACLOFEN 10 MG TABLET (FP) ONE (10:46)
[2023-08-15] MEDS ORDERED: HYDROCHLOROTHIAZIDE 25 MG TABLET (FP) ONE (10:46)
[2023-08-15] MEDS ORDERED: LISINOPRIL 20 MG TABLET ONE (10:46)
[2023-08-15] MEDS: HYDROCHLOROTHIAZIDE 25 MG TABLET (FP) PO SCH (10:54)
[2023-08-15] MEDS: BACLOFEN 10 MG TABLET (FP) PO SCH ×3 (10:54→21:36)
[2023-08-15] MEDS: LISINOPRIL 20 MG TABLET PO SCH (10:54)
[2023-08-15] MEDS ORDERED: LIDOCAINE PATCH REMOVAL MC ONE (14:00)
[2023-08-15] MEDS ORDERED: GABAPENTIN 100 MG CAPSULE ONE (14:25)
[2023-08-15] MEDS: GABAPENTIN 100 MG CAPSULE PO SCH ×2 (14:38→21:36)
[2023-08-15 16:59] VITALS: RESP 20; BMI 38.0
[2023-08-15] MEDS: ACETAMINOPHEN 1000 MG/100 ML BAG IVPB PRN (17:14)
[2023-08-15] MEDS ORDERED: ATORVASTATIN CA 20 MG TABLET (FP) PO SCH (22:00)
[2023-08-16] MEDS: ACETAMINOPHEN 1000 MG/100 ML BAG IVPB PRN (04:07)
[2023-08-16] MEDS: BACLOFEN 10 MG TABLET (FP) PO SCH ×2 (05:42→13:04)
[2023-08-16] MEDS: GABAPENTIN 100 MG CAPSULE PO SCH ×2 (05:42→13:04)
[2023-08-16] MEDS: HYDROCHLOROTHIAZIDE 25 MG TABLET (FP) PO SCH (09:29)
[2023-08-16] MEDS: LISINOPRIL 20 MG TABLET PO SCH (09:31)
[2023-08-16] MEDS ORDERED: ASPIRIN 81 MG CHEWABLE TABLETS PO SCH (10:00)
[2023-08-16] MEDS ORDERED: PATIENT'S OWN MEDICATION (NON-FORMULARY) (Lisinopril/Hydrochlorothiazide [Lisinopril-Hctz PO SCH (10:00)
[2023-08-16] MEDS ORDERED: HEPARIN NA (PORCINE) 5,000 UNITS/ML 1ML VIAL SQ SCH (12:30)
[2023-08-16 14:30] VITALS: BP 117/48; PULSE 68; TEMP 97.5
== END 2023-08-16 19:30 | disposition home or self-care (01) ==
LOC: JER 00:11 → JERBED 06:55 → J6S 15:59
PROVIDERS: ADMIT Internal Medicine; ATTEND Internal Medicine
PROC: 3E033NZ Introduction of Analgesics, Hypnotics, Sedatives into Peripheral Vein, Percutaneous Approach (ICD-10-PCS; principal; 2023-08-15)
PROC: 3E023GC Introduction of Other Therapeutic Substance into Muscle, Percutaneous Approach (ICD-10-PCS; 2023-08-15)
PROC: 3E033NZ Introduction of Analgesics, Hypnotics, Sedatives into Peripheral Vein, Percutaneous Approach (ICD-10-PCS; 2023-08-15)
DX: M54.59 Other low back pain (principal); M54.16 Radiculopathy, lumbar region; I10 Essential (primary) hypertension; E66.9 Obesity, unspecified; Z29.8 Encounter for other specified prophylactic measures; Z91.018 Allergy to other foods; Z88.8 Allergy status to other drugs, medicaments and biological substances; Z88.5 Allergy status to narcotic agent
CPT/HCPCS: 36415; 72131-TC; 72148-TC; 74176-TC; 80053; 81003; 85025; 87086; 96372; 96374; 96375; 96376; 97116-GP; 97161-GP; 99285-25; G0378; J0475; J1644

== ENCOUNTER 2024-04-28 10:36 | Emergency (ER) | payer OTHER ==
[2024-04-28 10:41] VITALS: BP 115/57; PULSE 81; RESP 18; TEMP 98; BMI 36.6
[2024-04-28] MEDS ORDERED: LIDOCAINE 4% PATCH TP ONE (11:26)
[2024-04-28] MEDS ORDERED: IBUPROFEN 400 MG TABLET (FP) PO ONE (11:26)
[2024-04-28] MEDS: IBUPROFEN 400 MG TABLET (FP) PO ONE (11:29)
[2024-04-28] MEDS: LIDOCAINE 4% PATCH TP ONE (11:29)
[2024-04-28 11:51] LABS: PH,URINE 5.5 (5.0-8.0); URINE BILIRUBIN NEGATIVE (NEGATIVE); URINE COLOR YELLOW; URINE GLUCOSE (UA) NEGATIVE (NEGATIVE); URINE KETONE TRACE (NEGATIVE); URINE LEUK ESTERASE NEGATIVE (NEGATIVE); URINE NITRITE NEGATIVE (NEGATIVE); URINE PROTEIN NEGATIVE (NEGATIVE); URINE UROBILINOGEN 0.2 mg/dL (0.2-1.0)
[2024-04-28] MEDS ORDERED: LIDOCAINE PATCH REMOVAL MC ONE (22:00)
[2024-04-30 10:00] LABS: URINE APPEARANCE CLEAR
== END 2024-04-28 12:16 | disposition home or self-care (01) ==
LOC: JER 10:36
DX: M54.50 Low back pain, unspecified (principal); M25.551 Pain in right hip; G89.29 Other chronic pain; X50.0XXA Overexertion from strenuous movement or load, initial encounter
CPT/HCPCS: 81003; 87086; 99283-25